=== PATIENT | female | born 1960 | race Hispanic/Latino ===

== ENCOUNTER 2017-09-10 17:39 | Emergency (ER) | payer MEDICARE ==
[2017-09-10] MEDS ORDERED: NORMAL SALINE 1,000 ML IV ONE ×2 (17:53→19:30)
[2017-09-10 18:15] LABS: Hematocrit 31.1 % (37.0-47.0); Hemoglobin 10.5 gm/dL (12.5-16.0); Mean Cell Volume 82.9 fl (78-100); Mean Corpuscular Hgb Conc 33.8 g/dl (32-36); Mean Platelet Volume 9.5 fl (6.0-9.5); Neutrophil # 3.5 K/mm3 (1.3-6.0); Neutrophil % 56.1 % (42-75.0); Platelet Count 255 K/mm3 (150-450); Red Blood Count 3.75 M/mm3 (4.2-5.4); Red Cell Distribution Width 17.7 % (11.5-14.0); White Blood Count 6.2 K/mm3 (4.0-10.5)
[2017-09-10 18:42] LABS: ALT 37 U/L (19-67); AST 26 U/L (0-48); Albumin * 3.6 gm/dl (3.4-5.0); Alkaline Phosphatase * 116 U/L (50-170); Amylase * 55 U/L (25-115); Anion Gap 10.9 mmol/L (6.8-13.8); BNP * 323 pg/mL (5-150); BUN/Creatinine Ratio 13.9 (9.0-21.6); Bilirubin, Total 0.2 mg/dL (0.0-1.1); Blood Urea Nitrogen 10 mg/dL (3-23); Ca. Corrected For Albumin 7.9 mg/dL (8.4-10.2); Calcium * 7.9 mg/dL (7.9-10.9); Carbon Dioxide 29.6 mmol/L (24-32.6); Chloride 105 mmol/L (97-106); Glucose * 118 mg/dL (70-110); Lipase 194 U/L (73-393); Potassium 3.5 mmol/L (3.4-4.6); Sodium 142 mmol/L (132-142); Troponin I Less than 0.017 ng/ml (0.00-0.10)
[2017-09-10] MEDS ORDERED: DEXTROSE 50%-WATER 50 ML SYRG ONE (18:43)
[2017-09-10] MEDS ORDERED: DEXTROSE 50%-WATER 50 ML SYRG IV ONE (18:44)
[2017-09-10] MEDS ORDERED: ACETAMINOPHEN 500 MG TABLET PO ONE (19:09)
--- NOTE | 2017-09-10 19:51 | ERNOTE ---
<Luc Leos - Last Filed: 09/10/17 19:43> Syncope ER HPI Date of Service: 09/10/17 Stated Complaint: PASSING OUT Time Seen by Provider: 09/10/17 17:47 Source: patient, EMS notes reviewed Exam Limitations: no limitations Immunizations: IMMUNIZATION HX Immunizations Up to Date Yes History of Influenza Vaccine Yes Hx Pneumococcal Vaccination Yes Allergies/Adverse Reactions: Allergies promethazine [From Phenergan] Allergy (Severe, Verified 09/10/17 17:50) Hives shellfish derived Allergy (Severe, Verified 09/10/17 17:50) Hives Home Medications: HOME MEDICATIONS Aspirin [Aspir-Low] 81 mg PO DAILY 09/07/17 [Last Taken Unknown] Atorvastatin Calcium 40 mg PO DAILY 09/07/17 [Last Taken Unknown] Carvedilol [Coreg] 6.25 mg PO BID 09/07/17 [Last Taken Unknown] Furosemide [Lasix] 40 mg PO DAILY 09/07/17 [Last Taken Unknown] Lamotrigine [Lamictal] 100 mg PO BID 09/07/17 [Last Taken Unknown] Lisinopril 5 mg PO DAILY 09/07/17 [Last Taken Unknown] Omeprazole [Prilosec] 20 mg PO DAILY 09/07/17 [Last Taken Unknown] Sertraline HCl [Zoloft] 100 mg PO HS 09/07/17 [Last Taken Unknown] clonazePAM [Klonopin] 1 mg PO BID 09/07/17 [Last Taken Unknown] metFORMIN HCL [Metformin HCl] 1,000 mg PO BID 09/07/17 [Last Taken Unknown] Ondansetron HCl [Zofran] 1 - 2 tab PO Q8H PRN #10 tab 09/10/17 [Last Taken Unknown] - History of Present Illness Narrative: patient noted to have low blood sugar and passed out, was seen new years mariela with similair episode, has had nausea vomiting and diarrhea as well Prior Episodes: Present: multiple episodes today, recent history Symptoms prior to episode: Present: vision changes, light headedness, nausea, headache Activity at time of episode: Present: standing Character of event: Present: prolonged (minutes), became unresponsive, awake and alert after becoming supine Location of Injury: Present: none Current Symptoms: Present: back to normal, light headedness, dizziness Prior Treament: Reports: recently seen, treated by physician, similar symptoms before Review of Systems - Narrative Narrative: hx of diabetes and seizure disorder - Review of Systems Constitutional: Present: See HPI, weakness, fatigue, malaise, weight loss EYE: Present: no symptoms reported ENT: Present: no symptoms reported Respiratory: Present: no symptoms reported Cardiology: Present: no symptoms reported Gastrointestinal/Abdominal: Present: nausea, vomiting, diarrhea, eating less, drinking less Genitourinary: Present: no symptoms reported Musculoskeletal: Present: no symptoms reported Skin: Present: no symptoms reported Neurological: Present: See HPI, headache, dizziness/light-headedness, weakness Endocrine: Present: no symptoms reported Hematologic/Lymphatic: Present: no symptoms reported - Narrative Narrative: similair episodes recently - Patient's Past Medical History Patient History - Medical: Anxiety, Diabetes Type 2 Insulin Dependent, Other - seizure hx Patient History - Cardiac/Respiratory: Arrhythmias, Cardiomyopathy, Other Patient History - Cancer: No Hx of Cancer Patient History - Surgical Procedures: Cholecystectomy, Hysterectomy, Pacemaker Patient History - Other: None LMP (females 10-50): hysterectomy - Family History Family History:: no untoward family reactions to anesthesia, no familial bleeding tendencies, no family history of clotting disorders, no family history of premature - Social History Living Situations: home Abuse History: No History of abuse Psych History: Hx of Anxiety Does anyone smoke in the home?: No Smoking Status: Never smoker Have you smoked in the past 12 months: No Do you dip or chew tobacco: No Patient requests Smoking Cessation Consult: No Initiate information on Smoking Cessation: No Alcohol Use: none Drug Use: none - Immunizations Immunizations Up to Date: Yes Hx Pneumococcal Vaccination: Yes History of Influenza Vaccine: Yes Physical Exam - Physical Exam General Appearance: Present: mild distress Head Exam: Present: normal inspection, no evidence of injury Eye Exam: Normal inspection: bilateral, PERRL: bilateral, EOMI: bilateral Ears, Nose, Throat: Present: normal ENT inspection Neck: Present: normal inspection, nontender Respiratory: Present: no respiratory distress, normal breath sounds, no accessory muscle use, chest nontender Cardiovascular/Chest: Present: regular rate, rhythm, no murmur, normal peripheral pulses Peripheral Pulses: N=norm/S=strong/W=weak/B=bound/A=absent: Carotid (R): Normal , Carotid (L): Normal, Radial (R): Normal, Radial (L): Normal, Femoral (R): Normal, Femoral (L): Normal, Dorsalis-pedis (R): Normal Gastrointestinal/Abdominal: Present: normal bowel sounds, nondistended, soft, tenderness Back Exam: Present: normal inspection, normal range of motion, no CVA tenderness , no vertebral tenderness Extremity Exam: Present: normal inspection, non-tender, normal range of motion, no edema Neurological Exam: Present: alert, oriented, normal mood/affect, no motor/ sensory deficits DTR: N=norm/NB=norm/brisk/A=abs/DD=dull/dimin/HC=hyperactive: Bicep (R): Normal , Bicep (L): Normal, Tricep (R): Normal, Tricep (L): Normal, Knee (R): Normal, Knee (L): Normal, Ankle (R): Normal, Ankle (L): Normal Skin Exam: Present: normal color, warm/dry Lymphatic Exam: Present: no adenopathy ED Progress - Date and Time Seen: Date and Time: 09/10/17 19:49 patient improved had 85 blood suger treared with d50 and condtion resolved - Results and Orders Patient's Lab Results:: I have reviewed the patient's lab results. - Vital Signs Patient's Vital Signs:: I have reviewed the patient's vital signs. Vital Signs: Vital Signs 09/10/17 09/10/17 09/10/17 17:43 17:59 18:31 Temperature 36.4 C L Pulse Rate 72 69 68 Respiratory 10 L 16 26 H Rate Blood Pressure 108/55 104/58 96/55 O2 Sat by Pulse 95 98 96 Oximetry 09/10/17 09/10/17 19:04 19:27 Temperature Pulse Rate 70 79 Respiratory 21 H 20 Rate Blood Pressure 110/57 117/62 O2 Sat by Pulse 96 97 Oximetry - EKG EKG: NSR - Progress/Reassessment Chief Complaint: Syncopal Episode - Transfer of Care Receiving Physician: Eric Huerta Departure Clinical Impression: Hypoglycemia, Dehydration Cardiomyopathy Qualifiers: Cardiomyopathy type: unspecified Qualified Code(s): I42.9 - Cardiomyopathy, unspecified Syncope Qualifiers: Syncope type: unspecified Qualified Code(s): R55 - Syncope and collapse - Departure Disposition: Home Follow Up Needed Condition: Good Instructions: Nausea, Adult, Hypoglycemia, [id number] Additional Instructions: See your primary care provider in 1-2 weeks. take nausea medication as needed and stay hydrated. Prescriptions: Ondansetron HCl [Zofran] 1 - 2 tab PO Q8H PRN #10 tab PRN Reason: Nausea <All Huertan - Last Filed: 09/11/17 03:00> Syncope ER HPI Immunizations: IMMUNIZATION HX Immunizations Up to Date Yes History of Influenza Vaccine Yes Hx Pneumococcal Vaccination Yes ED Progress - Results and Orders Patient's Lab Results:: I have reviewed the patient's lab results. Results and Orders: Laboratory Tests 09/10/17 09/10/17 09/10/17 17:56 18:15 18:15 WBC 6.2 Hgb 10.5 L Hct 31.1 L Plt Count 255 Sodium 142 Potassium 3.5 Chloride 105 Carbon Dioxide 29.6 BUN 10 Creatinine 0.72 Random Glucose 118 H Calcium 7.9 Total Bilirubin 0.2 AST 26 ALT 37 Alkaline Phosphatase 116 Troponin I Less than 0.017 B-Natriuretic Peptide 323 H Total Protein 7.0 Albumin 3.6 Amylase 55 Lipase 194 Influenza Type A Ag Negative Influenza Type B Ag Negative - Vital Signs Vital Signs: Vital Signs 09/10/17 09/10/17 09/10/17 17:43 17:59 18:31 Temperature 36.4 C L Pulse Rate 72 69 68 Respiratory 10 L 16 26 H Rate Blood Pressure 108/55 104/58 96/55 O2 Sat by Pulse 95 98 96 Oximetry 09/10/17 09/10/17 09/10/17 19:04 19:27 20:14 Temperature Pulse Rate 70 79 90 Respiratory 21 H 20 15 Rate Blood Pressure 110/57 117/62 118/64 O2 Sat by Pulse 96 97 98 Oximetry 09/10/17 20:55 Temperature 36.1 C L Pulse Rate 83 Respiratory 15 Rate Blood Pressure 117/71 O2 Sat by Pulse 99 Oximetry - Progress/Reassessment Progress:: Improved
[2017-09-10 21:37] VITALS: BP 120/73
== END 2017-09-10 22:02 | disposition home or self-care (01) ==
LOC: ER 17:39
DX: R55 Syncope and collapse; R56.9 Unspecified convulsions; I42.9 Cardiomyopathy, unspecified; E16.2 Hypoglycemia, unspecified; E86.0 Dehydration; F41.9 Anxiety disorder, unspecified; E11.9 Type 2 diabetes mellitus without complications